=== PATIENT | male | born 1955 | race American Indian/Alaskan Native ===

== ENCOUNTER → 2020-12-05 | Outpatient (CLI) | payer MEDICARE, MEDICAID ==
--- NOTE | 2020-11-29 16:17 | NUR ---
PT PHONE HAS BEEN DISCONNECTED OR IS NO LONGER IN SERVICE
--- NOTE | 2020-12-02 11:46 | NUR ---
PT WAS CANCELLED.NURSE WAS UNABLE TO GET AHOLD OF THE PATIENT LAST WEEK AND TODAY FOUND OUT PT IS ON XERALTO. PT WILL RESCHEDULE.
[2020-12-05] VITALS (13 sets, daily range): BP systolic 110–146; BP diastolic 56–73; PULSE 54–75
[~2020-12-05] MED LIST: AMITRIPTYLINE H50 M1 PO; ARICEPT 5MG PO; ASPIRIN 81M81 MG/TA2 PO; B-121000 MCG PO; CYMBALTA 60MG60 MG PO; FLOMAX 0.40.4 MG/CAP PO; LANTUS100 U/ML SQ; LIPITOR 80MG80 MG PO; LOPRESSOR 225 MG/TAB PO; LOTSPY TOP; MASON NATURAL2000 IU PO; MELATIN 3 MG-11 TAB PO; NAMENDA5 MG PO; NATURAL IRON65 MG PO; NEURONTIN300 MG/CAP PO; NOVOLIN 70100 UNIT/2 SQ; PREVACID 30MG30 M1 PO; ULORIC40 MG PO; XARELTO10 MG PO; ZOFRAN 4MG T4 MG/TAB PO
--- NOTE | 2020-12-05 11:15 | NUR ---
PT BROUGHT INTO ROOM PLACED ON TABLE AND MONITORING EQUIPMENT PLACED.
== END ==
LOC: COL.RAD 12-02 12:00
DX: C67.4 Malignant neoplasm of posterior wall of bladder (principal); R59.0 Localized enlarged lymph nodes
CPT/HCPCS: J3010

== ENCOUNTER 2020-12-25 05:23 | Day surgery (SDC) | payer MEDICARE, MEDICAID ==
[2020-12-25] VITALS (7 sets, daily range): BP systolic 87–125; BP diastolic 49–70; PULSE 55–70; TEMP 97.4–97.5
[~2020-12-25] VITALS: Ht 175.3 cm; Wt 102.9 kg
--- NOTE | 2020-12-25 08:13 | NUR ---
PATIENT TRANSPORTED PER CART FROM OR TO BAY 6 ACCOPANIED BY OR STAFF. MONITORS APPLIED. O2 AT 90% ON ROOM AIR. MASK APPLIED AT 5 LITER AND SAO2 AT 95%. PATIENT RESTING WITH EYES CLOSED AND EVEN RESPIRATIONS. RESPONDS TO VERBAL STIMULI AND RETURNS TO RESTING. AT BEDSIDE. VERBAL REPORT RECEIVED FROM OR NURSE AND ANSETHESIA.
--- NOTE | 2020-12-25 08:30 | NUR ---
VSS. O2 MASK REMOVED AND PATIENT ON ROOM AIR. PATIENT DENIES DISCOMFORT AND NAUSEA.
--- NOTE | 2020-12-25 08:45 | NUR ---
SAO2 DECREASED TO90% ON ROOM AIR. 02 PER NASAL CANNULA PLACED. PATIENT DRINKS WATER WITHOUT PROBLEMS [place] INCREASES TO 95%. PATIENT DENIES DISCOMFORT AND NAUSEA. AT BEDSIDE. PATIENT RESTS.
--- NOTE | 2020-12-25 09:11 | NUR ---
VSS ON 2 LITERS. AT BEDSIDE TALKING WITH PATIENT. XRAY IN ROOM AND DOES CHEST XRAY. 0911 PATIENT GIVEN MUFFIN AND COFFEE. DENIES DISCOMFORT AND NAUSEA.
--- NOTE | 2020-12-25 09:16 | NUR ---
O2 WAS REMOVED. VSS ON ROOM AIR. PATIENT TOLERATES MUFFIN AND COFFEE WITHOUT PROBLEMS. PATIENT ALERT AND TALKING WITH .
--- NOTE | 2020-12-25 09:25 | NUR ---
DISCHARGE INSTRUCTIONS GIVEN VERBAL AND DISCHARGE PACKET PROVIDED. PORT A CATH INFORMATION PACKET GIVEN TO . QUESTIONS ANSWERED AND AND PATIENT VOICED UNDERSTANDING. 5385 IV DC'D WITH CATHETER TIP INTACT. PRESSURE AND BANDAGE APPLIED. [id number] PATIENT DISCHARGED PER WHEEL CHAIR ACCOMPANIED BY RN TO PRIVATE VECHILE DRIVEN BY .
== END 2020-12-25 09:46 | disposition home or self-care (01) ==
LOC: SDCO 05:23
DX: Z45.2 Encounter for adjustment and management of vascular access device (principal); C67.9 Malignant neoplasm of bladder, unspecified; E78.00 Pure hypercholesterolemia, unspecified; I25.2 Old myocardial infarction; I11.9 Hypertensive heart disease without heart failure; I25.10 Atherosclerotic heart disease of native coronary artery without angina pectoris; K21.9 Gastro-esophageal reflux disease without esophagitis; E11.40 Type 2 diabetes mellitus with diabetic neuropathy, unspecified; Z20.822 Contact with and (suspected) exposure to COVID-19; Z79.899 Other long term (current) drug therapy; Z79.01 Long term (current) use of anticoagulants; Z79.82 Long term (current) use of aspirin; Z86.73 Personal history of transient ischemic attack (TIA), and cerebral infarction without residual deficits; Z90.49 Acquired absence of other specified parts of digestive tract; Z88.5 Allergy status to narcotic agent; Z79.84 Long term (current) use of oral hypoglycemic drugs; Z95.1 Presence of aortocoronary bypass graft; Z80.9 Family history of malignant neoplasm, unspecified; Z82.3 Family history of stroke; Z83.3 Family history of diabetes mellitus
CPT/HCPCS: C1788; J0690; J1644; J2704; J3010; J7030